=== PATIENT | male | born 1940 | race Caucasian/White ===

== ENCOUNTER → 2017-04-09 | Outpatient (CLI) | payer OTHER ==
--- NOTE | 2017-04-09 09:30 | DIAGNOSTIC IMAGING REPORT ---
LEFT HIP UNILATERAL 2 VIEWS CLINICAL HISTORY: Left hip pain. COMPARISON: None FINDINGS: Alignment of the left hip is anatomic. There is moderate joint space narrowing with osteophytosis and sclerosis. There is abnormal contour at the femoral head/neck junction. There is osteophytosis of the symphysis pubis. No acute fracture or suspicious lesion is identified. IMPRESSION: 1. 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 2. No acute fracture. Electronically signed by: Moisés Ram M.D. 04/09/2017 9:28 AM Dictated Date/Time: 04/09/2017 9:28 AM
== END | disposition home or self-care (01) ==
LOC: C.RAD1850 09:07
PROVIDERS: ATTEND Physician Assistant
DX: R10.30 Lower abdominal pain, unspecified (principal); M25.552 Pain in left hip